=== PATIENT | female | born 1950 | race Two or more races ===

== ENCOUNTER → 2019-12-03 07:00 | Outpatient (CLI) | payer OTHER ==
[~2019-12-03] VITALS: Ht 154.9 cm; Wt 50.8 kg
[~2019-12-03 07:00] MED LIST: COZAAR100 MG PO
== END | disposition home or self-care (01) ==
LOC: LAB 07:00 → SURH 12-09 11:00 → EDSTATUS 12-09 11:30
PROVIDERS: ATTEND Surgery
DX: D12.2 Benign neoplasm of ascending colon (principal); D37.4 Neoplasm of uncertain behavior of colon; R59.0 Localized enlarged lymph nodes; Z01.812 Encounter for preprocedural laboratory examination; Z20.828 Contact with and (suspected) exposure to other viral communicable diseases

== ENCOUNTER 2019-12-08 08:30 | Day surgery (SDC) | payer OTHER | END 2019-12-08 14:20 | disposition home or self-care (01) | LOC: AMB-ENDOS 08:30 | PROVIDERS: ATTEND Surgery | DX: D12.2 Benign neoplasm of ascending colon (principal); Z20.828 Contact with and (suspected) exposure to other viral communicable diseases ==

== ENCOUNTER 2020-07-12 06:31 | Day surgery (SDC) | payer OTHER | END 2020-07-12 11:00 | disposition home or self-care (01) | LOC: AMB-ENDOS 06:31 | PROVIDERS: ATTEND Surgery | DX: D12.2 Benign neoplasm of ascending colon (principal); Z20.822 Contact with and (suspected) exposure to COVID-19; K62.82 Dysplasia of anus ==

== ENCOUNTER 2020-08-16 10:15 | Inpatient (IN) | payer OTHER ==
[~2020-08-16] VITALS: Ht 154.9 cm; Wt 51.7 kg
[2020-08-16] MEDS ORDERED: LOSART PO (16:00)
[2020-08-20] MEDS ORDERED: LOSARTAN POTASS25 MG (09:48)
[2020-08-20] MEDS ORDERED: ALENDRONATE SOD70 MG (09:48)
[2020-08-20] MEDS ORDERED: LOSARTAN POTASS50 MG (09:48)
[2020-08-22] MEDS ORDERED: OMEPRAZOLE20 M1 PO (15:27)
[2020-08-22] MEDS ORDERED: PERCOCET 5-3251 EACH PO (15:27)
== END 2020-08-22 15:52 | disposition home or self-care (01) | DRG 331 ==
LOC: SURH 08-20 06:00 → O/R 08-20 06:00 → SURH 08-20 08:45
PROVIDERS: ADMIT Surgery; ATTEND Surgery
PROC: 07BB4ZZ Excision of Mesenteric Lymphatic, Percutaneous Endoscopic Approach (ICD-10-PCS; 2020-08-20)
PROC: 0DTF4ZZ Resection of Right Large Intestine, Percutaneous Endoscopic Approach (ICD-10-PCS; principal; 2020-08-20 08:45)
DX: C18.2 Malignant neoplasm of ascending colon (principal); D37.4 Neoplasm of uncertain behavior of colon; R59.0 Localized enlarged lymph nodes; I10 Essential (primary) hypertension

== ENCOUNTER 2020-09-22 13:34 | Emergency (ER) | payer OTHER ==
[~2020-09-22] VITALS: Ht 152.4 cm; Wt 47.6 kg
[~2020-09-22 13:34] MED LIST changes: +ALENDRONATE SOD70 MG; +LOSART PO; +LOSARTAN POTASS25 MG; +LOSARTAN POTASS50 MG; +OMEPRAZOLE20 M1 PO; +PERCOCET 5-3251 EACH PO
[2020-09-22] MEDS ORDERED: COZAAR100 MG (13:43)
[2020-09-22] MEDS ORDERED: FLAGYL500MG PO (18:55)
== END 2020-09-22 19:05 | disposition home or self-care (01) ==
LOC: ER 13:34
DX: K62.5 Hemorrhage of anus and rectum (principal); R19.7 Diarrhea, unspecified; K91.841 Postprocedural hemorrhage of a digestive system organ or structure following other procedure; T81.89XA Other complications of procedures, not elsewhere classified, initial encounter; Y83.8 Other surgical procedures as the cause of abnormal reaction of the patient, or of later complication, without mention of misadventure at the time of the procedure